=== PATIENT | male | born 1960 | race Caucasian/White ===

== ENCOUNTER 2021-02-11 07:19 | Day surgery (SDC) | payer OTHER ==
[~2021-02-11] VITALS: Ht 177.8 cm; Wt 110.9 kg
[2021-02-11] MEDS ORDERED: GLUCOPHAGE500 MG/TAB PO (07:51)
[2021-02-11] MEDS ORDERED: TRICOR145 MG PO (07:52)
[2021-02-11] MEDS ORDERED: LIPITOR 40MG TA40 MG PO (07:53)
[2021-02-11] MEDS ORDERED: GLUCOTROL 5M5 MG/TAB PO (07:53)
[2021-02-11] MEDS ORDERED: NORVASC 5MG5 MG/TAB PO (07:54)
[2021-02-11] MEDS ORDERED: LOTENSIN40 MG PO (07:54)
[2021-02-11] MEDS ORDERED: ASPIRIN 81M81 MG/TA2 PO (07:55)
[2021-02-11 08:28] VITALS: BP 160/95; PULSE 75; TEMP 97.3
[2021-02-11 09:00] VITALS: BP 112/76; PULSE 75; TEMP 98.6
[2021-02-11 09:15] VITALS: BP 128/87; PULSE 74
--- NOTE | 2021-02-11 09:15 | NUR ---
Patient is sitting up in bed, denies any discomfort. Vital signs stable. Tolerating food an drink well. Will continue to monitor.
[2021-02-11 09:30] VITALS: BP 132/77; PULSE 68
--- NOTE | 2021-02-11 09:30 | NUR ---
Patient sittingup in chair, denies discomfort. Vital signs stable. Tolerating food and drink well. Discontinue IV with no complications. Review discharge instruction and education materials, patient verbalized understanding. Daughter called for ride home. Instructed patient to dress and then call out for tranportation.
--- NOTE | 2021-02-11 09:31 | NUR ---
Physician in to speak with patient.
--- NOTE | 2021-02-11 09:45 | NUR ---
Patient transfered via wheel chair to personal vehicle. daughter to drive home.
--- NOTE | 2021-02-11 13:40 | NUR ---
Patient returned to [facility] via cart, transfered to chair with slow steady gait. Alert and oriented. Postop vital signs started. Patient agreed to try sprit and toast. Patient denies any discomfort. Will continue to monitor.
== END 2021-02-11 09:45 | disposition home or self-care (01) ==
LOC: SDCO 07:19
DX: Z12.11 Encounter for screening for malignant neoplasm of colon (principal); Z80.0 Family history of malignant neoplasm of digestive organs; D12.0 Benign neoplasm of cecum; D12.8 Benign neoplasm of rectum; K57.30 Diverticulosis of large intestine without perforation or abscess without bleeding; E11.9 Type 2 diabetes mellitus without complications; E78.5 Hyperlipidemia, unspecified; F17.290 Nicotine dependence, other tobacco product, uncomplicated; I25.10 Atherosclerotic heart disease of native coronary artery without angina pectoris; I10 Essential (primary) hypertension; I25.2 Old myocardial infarction; Z95.818 Presence of other cardiac implants and grafts; Z79.82 Long term (current) use of aspirin; Z79.84 Long term (current) use of oral hypoglycemic drugs; Z79.899 Other long term (current) drug therapy
CPT/HCPCS: J2704; J7030